=== PATIENT | male | born 1965 | race Caucasian/White ===

== ENCOUNTER 2019-01-21 13:09 | Day surgery (SDC) | payer OTHER ==
[~2019-01-21 13:09] MED LIST: PROPOFOL 200 MG INJ
[2019-01-21] MEDS ORDERED: PROPOFOL 60 ML (15:10)
[2019-01-21] MEDS ORDERED: LIDOCAINE 2% (SDV) 5 ML INJ (15:11)
[2019-01-21] MEDS ORDERED: hydrALAzine 20 MG INJ IV (15:30)
[2019-01-21] MEDS ORDERED: EPHEDrine SULFATE 50 MG/5 ML SYG IV (15:30)
[2019-01-21] MEDS ORDERED: METOCLOPRAMIDE 10 MG INJ IV (15:30)
[2019-01-21] MEDS ORDERED: LABETALOL HCL 20MG INJ IV (15:30)
[2019-01-21] MEDS ORDERED: ONDANSETRON 4 MG INJ IV (15:30)
[2019-01-21] MEDS ORDERED: FENTAnyl 50 MCG/ML VIAL IV ×2 (15:30)
== END 2019-01-21 16:53 | disposition home or self-care (01) ==
LOC: GIL 13:09
DX: D12.5 Benign neoplasm of sigmoid colon (principal)
CPT/HCPCS: 45380; 88305